=== PATIENT | female | born 1960 | race Caucasian/White ===

== ENCOUNTER 2022-08-26 13:08 | Emergency (ER) | payer MEDICARE ==
[~2022-08-26] VITALS: Ht 165.1 cm; Wt 145.2 kg
--- OUTSIDE RECORDS SUMMARY | 2022-08-26 13:10 | XMS ---
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 [place] VISIT COUNT (12 MO.) 1 DANIELLE Dorsey TOTAL 1 NOTE: Visits indicate total known visits. ED/UCC VISIT TRACKING (12 MO.) 08/26/2022 13:09 DANIELLE Panchal [place] TYPE: Emergency COMPLAINT: - COLD SYMPTOMS INPATIENT VISIT TRACKING (12 MO.) No inpatient visits to display in this time frame [email or web address]
[2022-08-26] MEDS ORDERED: LEVOTHYROXINE125 MCG PO (13:28)
[2022-08-26] MEDS ORDERED: OXYBUTYNIN CHLO15 MG PO (13:28)
[2022-08-26] MEDS ORDERED: HYDROCODON-ACE1 EAC8 PO (13:28)
[2022-08-26] MEDS ORDERED: FLUOXETINE HCL20 MG PO (13:29)
--- NOTE | 2022-08-27 13:10 | EKG ---
[facility] [address] [facility] [place] [address] Signed Normal sinus rhythm ST elevation, probably due to early repolarization Borderline ECG When compared with ECG of 26-AUG-2022 13:19, (Unconfirmed) Previous ECG has undetermined rhythm, needs review Confirmed by FRED CAMACHO MD ([id number]) on 08/27/2022 1:10:44 PM Electronically Signed By: FRED CAMACHO MD 08/27/22 1310 PATIENT NAME: CORRINA LEE Electrocardiogram DATE OF : 58 PHYSICIAN: FRED CAMACHO MD REPORT #: [id number] REPORT IS CONFIDENTIAL AND NOT TO BE RELEASED WITHOUT AUTHORIZATION
--- NOTE | 2022-08-27 13:11 | EKG ---
[facility] [address] [facility] [place] [address] Signed Sinus rhythm with occasional premature ventricular complexes Acute pericarditis Abnormal ECG When compared with ECG of 26-AUG-2022 13:20, (Unconfirmed) premature ventricular complexes are now present Confirmed by FRED CAMACHO MD ([id number]) on 08/27/2022 1:10:56 PM Electronically Signed By: FRED CAMACHO MD 08/27/22 1311 PATIENT NAME: CORRINA LEE JENNY Electrocardiogram DATE OF : 58 PHYSICIAN: FRED CAMACHO MD REPORT #: [id number] REPORT IS CONFIDENTIAL AND NOT TO BE RELEASED WITHOUT AUTHORIZATION
== END 2022-08-26 17:47 | disposition short-term general hospital (02) ==
LOC: ED 13:08
DX: I21.4 Non-ST elevation (NSTEMI) myocardial infarction (principal); E06.3 Autoimmune thyroiditis; Z20.822 Contact with and (suspected) exposure to COVID-19; Z88.2 Allergy status to sulfonamides; Z88.0 Allergy status to penicillin; Z88.5 Allergy status to narcotic agent; Z79.899 Other long term (current) drug therapy
CPT/HCPCS: 36415; 71045; 80053; 83735; 84484; 85025; 87502; 93005; 93010; 96374; 96375; 99285-25; A9270; C9803; J1644; J2270; J2405; U0003

== ENCOUNTER 2025-02-10 13:06 | Emergency (ER) | payer MEDICARE ==
[~2025-02-10] VITALS: Ht 165.1 cm; Wt 147.0 kg
[~2025-02-10 13:06] MED LIST: FLUOXETINE HCL20 MG PO; HYDROCODON-ACE1 EAC8 PO; LEVOTHYROXINE125 MCG PO; OXYBUTYNIN CHLO15 MG PO
[2025-02-10] MEDS ORDERED: AMLODIPINE BESY10 MG PO (14:13)
[2025-02-10] MEDS ORDERED: POLYMYXIN B-TMP10 ML OPTH (14:13)
[2025-02-10] MEDS ORDERED: DUPIXENT300 MG/2 M SUB-Q (14:14)
[2025-02-10 14:28] LABS: BASOPHILS 0.4 % (0.1-1.2); EOSINOPHILS 2.6 % (0.7-5.8); HEMOGLOBIN 12.1 g/dL (11.2-15.7); MCH 27.8 PG (25.6-32.2); MCHC 31.8 g/dL (32.2-35.5); MCV 87.2 fL (79.4-94.8); MONOCYTES 6.4 % (4.7-12.5); NEUTROPHILS 71.8 % (34.0-71.1); PLATELET COUNT 397 K/uL (182-369); RBC 4.36 M/uL (3.93-5.22)
[2025-02-10 14:52] LABS: ALBUMIN 2.4 g/dL (3.4-5.0); ALBUMIN/GLOBULIN RATIO 0.52 (1.1-2.4); ANION GAP 9.2 (7-21); BILIRUBIN, TOTAL 0.2 mg/dL (0.2-1.0); BUN/CREATININE RATIO 23.4 (6.0-28.6); CALCIUM 8.8 mg/dL (8.5-10.1); CREATININE, SERUM 0.94 mg/dL (0.55-1.02); MAGNESIUM 2.1 mg/dL (1.8-2.4); POTASSIUM 4.2 mmol/L (3.5-5.1); TSH, 3RD GENERATION 5.316 uIU/mL (0.358-3.740)
[2025-02-10] MEDS ORDERED: ELIQUIS5 MG PO (16:09)
[2025-02-10 16:15] VITALS: BP 156/70
[2025-02-10] MEDS ORDERED: APIXABAN 5 MG TAB PO ONE (16:15)
--- NOTE | 2025-02-12 07:45 | EKG ---
[facility] [address] [facility] [place] [address] Signed Atrial fibrillation Minimal voltage criteria for LVH, may be normal variant ( Lindsay product ) Cannot rule out Anterior infarct , age undetermined Abnormal ECG When compared with ECG of 26-AUG-2022 14:25, Atrial fibrillation has replaced Sinus rhythm ST no longer elevated in Lateral leads Confirmed by Mack Gardner MD ([id number]) on 02/12/2025 7:44:45 AM Electronically Signed By: MACK GARDNER MD 02/12/25 0745 PATIENT NAME: CORRINA LEE JENNY Electrocardiogram DATE OF : 58 PHYSICIAN: MACK GARDNER MD REPORT #: [id number] REPORT IS CONFIDENTIAL AND NOT TO BE RELEASED WITHOUT AUTHORIZATION
[2025-02-12 12:41] LABS: THYROXINE FREE 1.4 ng/dL (0.9-1.7)
== END 2025-02-10 16:15 | disposition home or self-care (01) ==
LOC: ED 13:06
PROVIDERS: Emergency Medicine
DX: I48.91 Unspecified atrial fibrillation (principal); Z79.899 Other long term (current) drug therapy; Z88.0 Allergy status to penicillin; Z88.2 Allergy status to sulfonamides; Z88.5 Allergy status to narcotic agent
CPT/HCPCS: 36415; 80053; 80307; 83735; 84439; 84443; 84484; 85025; 93005; 93010; 99285